=== PATIENT | female | born 1950 | race Caucasian/White ===

== ENCOUNTER 2020-08-31 07:32 | Day surgery (SDC) | payer MEDICARE ==
[2020-08-31] MEDS ORDERED: fentaNYL 100 MCG/2 ML SDV ONE (07:58)
[2020-08-31] MEDS ORDERED: Propofol 200 MG/20 ML SDV ONE (07:58)
[2020-08-31] MEDS ORDERED: Midazolam 1 MG/ML 2 ML SDV ONE (07:58)
[2020-08-31] MEDS ORDERED: Sodium Chloride 0.9% 1,000 ML IV SCH (08:00)
[2020-08-31 10:56] VITALS: BP 132/68; PULSE 57
--- NOTE | 2020-08-31 11:50 | OR ---
DATE OF PROCEDURE: 08/31/2020 SURGEON: Tristen Mckeon MD PROCEDURE: Colonoscopy. FINDINGS: 1. No significant pathology noted. 2. Poor colon prep. 3. Random biopsies performed of ascending colon, . 4. Diverticulosis, mild, throughout entire colon without evidence of diverticulitis or bleeding. PREOPERATIVE DIAGNOSIS: Chronic diarrhea. POSTOPERATIVE DIAGNOSIS: Chronic diarrhea. RISKS: Risks, benefits, alternatives, and limitations including, but not limited to, infection, bleeding, perforation, false positives, and false negatives were explained to the patient, who wished to proceed. PROCEDURE IN DETAIL: The patient was placed in left lateral decubitus position. Digital rectal exam was performed without abnormality. Scope was introduced and advanced atraumatically to the ileocecal valve. A photo was taken of appendiceal orifice. Scope was brought back to the remainder of the colon. The patient is known to have diverticulosis, which would be described as very mild without evidence of diverticulitis or bleeding. No old or new blood. No masses. Due to the chronic diarrhea history and mild inflammation, multiple biopsies were performed at the aforementioned locations. No polyps. No abnormalities on retroflexion. The prep was described as poor with large amounts of solid and liquid stool remaining. Greater than 8 minutes was spent removing the scope. The patient tolerated the procedure well. Tristen Mckeon MD /[id number]
== END 2020-08-31 10:55 | disposition home or self-care (01) ==
LOC: JP.SDS 07:32
PROVIDERS: ATTEND Surgery
DX: K52.9 Noninfective gastroenteritis and colitis, unspecified (principal); K57.30 Diverticulosis of large intestine without perforation or abscess without bleeding; K21.9 Gastro-esophageal reflux disease without esophagitis
CPT/HCPCS: 45380; 88305; J2250; J2704; J3010; J7030